=== PATIENT | male | born 1980 ===

== ENCOUNTER 2017-08-05 23:54 | Emergency (ER) | payer OTHER ==
[2017-08-06 00:01] VITALS: BP 133/87; PULSE 77; RESP 18; TEMP 97.5; O2SAT 100
--- NOTE | 2017-08-06 00:41 | C.PDOC ---
History Of Present Illness pt was "head butted " by his dog sustaining a small laceration to upper left lip. Not thru and thru. minimal bleeding. Time Seen by Provider: 08/06/17 00:41 Chief Complaint (Nursing): Abnormal Skin Integrity History Per: Patient History/Exam Limitations: no limitations Onset/Duration Of Symptoms: Mins Current Symptoms Are (Timing): Still Present Location Of Injury: Left: Head Quality Of Symptoms: Swollen Severity: Mild Pain Scale Rating Of: 3 Recent travel outside of the [place]: No Additional History Per: Patient Past Medical History Reviewed: Historical Data, Nursing Documentation, Vital Signs Vital Signs: Last Vital Signs Temp 97.5 F L 08/05/17 23:59 Pulse 77 08/05/17 23:59 Resp 18 08/05/17 23:59 BP 133/87 08/05/17 23:59 Pulse Ox 100 08/06/17 00:41 Surgical History: Appendectomy Family History: States: No Known Family Hx - Social History Hx Alcohol Use: No Hx Substance Use: No - Immunization History Hx Tetanus Toxoid Vaccination: No Hx Influenza Vaccination: No Hx Pneumococcal Vaccination: No Review Of Systems ENT: Positive for: Mouth Swelling Physical Exam - Physical Exam Appears: Non-toxic, No Acute Distress Skin: Other (laceration upper lip) Head: Normacephalic Oral Mucosa: Moist Lips: Laceration (o.5 cm upper left lip) ED Course And Treatment O2 Sat by Pulse Oximetry: 100 Pulse Ox Interpretation: Normal Laceration - Laceration Repair lip Wound Length (In cm): 0.5 cm Description Of Wound: Irregular Anesthesia: Lidocaine 1%, With Epi Wound Examination: Irrigated With Saline Wound Closure: Suture (6.0 prolene) Suture Technique And Material Used: Interrupted Wound Complexity: Simple Disposition Counseled Patient/Family Regarding: Studies Performed, Diagnosis, Need For Followup - Disposition Disposition: HOME/ ROUTINE Disposition Time: 00:41 Condition: FAIR Additional Instructions: Please return in 5-7 days for suture removal Instructions: Laceration Repair With Stitches (DC) Forms: [employer] (Swedish) - Clinical Impression Clinical Impression: Laceration of lip
[2017-08-06] MEDS ORDERED: Tdap Vaccine 0.5 ml Vial (10-64 yrs) IM ONE ×2 (00:47→00:53)
== END 2017-08-06 01:11 | disposition home or self-care (01) ==
LOC: C.ER 23:54
DX: S01.511A Laceration without foreign body of lip, initial encounter (principal); W54.1XXA Struck by dog, initial encounter

== ENCOUNTER 2018-01-06 10:46 | Emergency (ER) | payer OTHER ==
[2018-01-06 10:54] VITALS: BMI 23.6
[2018-01-06 10:56] VITALS: BP 124/67; PULSE 93; TEMP 97.7; O2SAT 100
[2018-01-06] MEDS ORDERED: Sodium Chloride 0.9% 1,000 ML IV ONE (11:27)
--- NOTE | 2018-01-06 11:30 | C.PDOC ---
History Of Present Illness 37 year old male presents to ED for evaluation of worsening facial injection for the last 3 weeks. Patient states symptoms are always present but have now worsened, onset with swelling. Temperature Max is 102 1 day ago. +Malaise. Denies dental pain, trauma, no previous antibiotic use, wound discharge, and other associated symptoms. WORSENING FACIAL SKIN INFECTION X 3 WEEKS. PS NOW WORSE BUT ALWAYS PRESENT. NEW ONSET SWELLING, TM 102 YEST, +MALAISE. DENIES DENTAL PAIN, TRAUMA. NO PREV ABX USE. DENIES WOUND DC. EXAM MOD DIST HEENT +SWELLING R LOWER FACE; NO DENTAL TEND, ABSCESS; INTRAORAL WNL. ATRAUM. MANDIBLE AROM WO DIF NO PHOTOPHOBIA SKIN +IMPETIGO R LOWER FACE W LOCAL ERYTHEMA, NO FLUCTUANCE. NEURO NO FOCAL DEF REMAINDE RNEG Time Seen by Provider: 01/06/18 11:19 Chief Complaint (Nursing): Allergic Reaction History Per: Patient History/Exam Limitations: no limitations Onset/Duration Of Symptoms: Days Current Symptoms Are (Timing): Still Present Past Medical History Reviewed: Historical Data, Nursing Documentation, Vital Signs Vital Signs: Last Vital Signs Temp 97.7 F 01/06/18 10:54 Pulse 93 H 01/06/18 10:54 Resp 20 01/06/18 14:07 BP 124/67 01/06/18 10:54 Pulse Ox 100 01/06/18 13:31 Surgical History: Appendectomy Family History: States: Unknown Family Hx - Social History Hx Alcohol Use: No Hx Substance Use: No - Immunization History Hx Tetanus Toxoid Vaccination: No Hx Influenza Vaccination: No Hx Pneumococcal Vaccination: No Review Of Systems Except As Marked, All Systems Reviewed And Found Negative. Constitutional: Positive for: Fever (TM 102), Malaise, Other (facial injection) . Negative for: Chills Gastrointestinal: Negative for: Nausea, Vomiting Neurological: Negative for: Weakness, Numbness, Incoordination Physical Exam - Physical Exam Appears: Non-toxic, Other (moderate discomfort ) Skin: Warm, Dry, Other (+IMPETIGO to the right lower face with local erythema. No fluctuance.) Head: Atraumatic, Normacephalic, Other (+swelling to right lower face) Eye(s): bilateral: Normal Inspection, PERRL, EOMI, Other (NO PHOTOPHOBIA) Teeth: Other (no dental tenderness, abscess, intraoral within normal limits. Mandible full ROM with out deficits. ) Neurological/Psych: Oriented x3, Normal Speech, Normal Motor, Normal Sensation, Other (no focal deficit) Gait: Steady ED Course And Treatment - Laboratory Results Result Diagrams: 01/06/18 11:48 01/06/18 11:48 O2 Sat by Pulse Oximetry: 100 (RA) Pulse Ox Interpretation: Normal Progress - Re-Evaluation Re-evaluation Note: 01/06/18 13:11 D/W DR DAVIS: CT FACE CELLULITIS, NO ABSCESS 01/06/18 13:25 SP IVF, PS FEELS BETTER. AGREES W DC PLAN - Data Reviewed Data Reviewed: Lab, Diagnostic imaging Medical Decision Making Medical Decision Making: Plan: --Blood sent --Urine culture sent --Blood culture sent. --Reglan --Sodium Chloride --Toradol --Tylenol --Vancomycin. Progress/Update: Patient stable for discharge home. Prescribed Bactrim, Bactroban Cream, Cephalexin, Motrin. Disposition Counseled Patient/Family Regarding: Studies Performed, Need For Followup, Rx Given - Disposition Referrals: YOUR,PMD [Other] Disposition: HOME/ ROUTINE Disposition Time: 14:00 Condition: IMPROVED Prescriptions: Cephalexin [cephalexin] 500 mg PO BID #14 cap Ibuprofen [Motrin] 600 mg PO Q6 #30 tab Mupirocin 2% Cream [Bactroban Cream] 30 applic TOP BID #1 tube Sulfamethoxazole/Trimethoprim [Bactrim DS 800 mg-160 mg] 1 tab PO BID #14 tab Instructions: Impetigo (DC), Cellulitis (Skin Infection), Adult (DC) Forms: [employer] (Swedish) - Clinical Impression Clinical Impression: Impetigo, Cellulitis - Scribe Statement The provider has reviewed the documentation as recorded by the Scribe (Azucena Gentile) Provider Attestation: All medical record entries made by the Scribe were at my direction and personally dictated by me. I have reviewed the chart and agree that the record accurately reflects my personal performance of the history, physical exam, medical decision making, and the department course for this patient. I have also personally directed, reviewed, and agree with the discharge instructions and disposition.
[2018-01-06 11:51] LABS: BASO # 0.1 K/uL (0.0-0.2); BASO % 0.7 % (0.0-2.0); EOS # 0.8 K/uL (0.0-0.7); EOS % 9.1 % (0.0-4.0); HEMOGLOBIN 15.7 g/dL (12.0-18.0); LYMPH # 1.5 K/uL (1.0-4.3); LYMPH % 17.1 % (20.0-40.0); MEAN CELL VOLUME 91.3 fL (80.0-94.0); MEAN CORPUSCULAR HEMOGLOBIN 31.1 pg (27.0-31.0); MEAN CORPUSCULAR HGB CONC 34.1 g/dL (33.0-37.0); MEAN PLATELET VOLUME 7.6 fL (7.2-11.7); MONO # 0.9 K/uL (0.0-0.8); MONO % 10.2 % (0.0-10.0); NEUT # 5.6 K/uL (1.8-7.0); NEUT % 62.9 % (50.0-75.0); NRBC % 0.1 % (0.0-2.0); RBC 5.06 Mil/uL (4.40-5.90); WHITE BLOOD COUNT 8.9 K/uL (4.8-10.8)
[2018-01-06] MEDS ORDERED: Sodium Chloride 0.9% 250 ML IV ONE (12:00)
[2018-01-06] MEDS ORDERED: Sodium Chloride 0.9% 2,000 ML ONE (12:00)
[2018-01-06] MEDS ORDERED: Vancomycin 1 GM 1 GM/250 ML BAG IVPB ONE (12:03)
[2018-01-06 12:06] LABS: VENOUS BLOOD GAS BASE EXCESS 3.1 mmol/L (0.0-2.0); VENOUS BLOOD GAS PCO2 56 mmHg (40-60); VENOUS BLOOD GAS PO2 24 mm/Hg (30-55); VENOUS BLOOD PH 7.34 (7.32-7.43)
[2018-01-06 12:11] LABS: ALB/GLOB RATIO 1.4 (1.0-2.1); ALBUMIN 4.5 g/dL (3.5-5.0); ALT/SGPT 38 U/L (21-72); AST/SGOT 25 U/L (17-59); BLOOD UREA NITROGEN 12 mg/dL (9-20); CALCIUM 9.4 mg/dl (8.6-10.4); GFR NON-AFRICAN AMERICAN > 60
[2018-01-06] MEDS ORDERED: Iodixanol 320 MG/ML 100 ML BOTTLE IV ONE (12:38)
[2018-01-06 12:46] LABS: SQUAMOUS EPITHIAL < 1 /hpf (0-5); URINE BILIRUBIN NEGATIVE (NEGATIVE); URINE BLOOD NEGATIVE (NEGATIVE); URINE CLARITY Clear (Clear); URINE COLOR Yellow (YELLOW); URINE GLUCOSE (UA) NORMAL (Normal); URINE LEUKOCYTE ESTERASE NEG Leu/uL (Negative); URINE PROTEIN NEGATIVE (NEGATIVE); URINE UROBILINOGEN NORMAL mg/dL (0.2-1.0)
--- NOTE | 2018-01-06 13:14 | CT ---
Date of service: 01/06/2018 PROCEDURE: CT MAXILLOFACIAL BONES WITH CONTRAST HISTORY: SWELLING RO ABSCESS COMPARISON: None. TECHNIQUE: Contiguous axial CT images of the maxillofacial bones were obtained following administration of IV contrast. Coronal and sagittal reformats were generated. Intravenous contrast Dose: Visipaque 320, 100 cc Radiation dose: Total exam DLP = 885.75 mGy-cm. This CT exam was performed using one or more of the following dose reduction techniques: Automated exposure control, adjustment of the mA and/or kV according to patient size, and/or use of iterative reconstruction technique. FINDINGS: NASAL BONES: No acute fracture identified. ORBITS: Unremarkable. PARANASAL SINUSES/ MASTOIDS: Multifocal ethmoid sinusitis identified with minimal right maxillary sinus disease appreciated. MAXILLA: There is relatively prominent superficial and deep subcutaneous edema identified overlying the inferior maxilla at the right and involves left mandibular soft tissue even more so. Dermal thickening is appreciated but with no retained radiodense foreign body or emphysema soft tissue changes associated. No defined fluid collection is appreciated with edema extending posteriorly to nearly abut the superficial portion of the right parotid gland. Overall pattern reflects limited phlegmon anteriorly but is most compatible with cellulitis without definitive abscess appreciable. MANDIBLE/ TEMPOROMANDIBULAR JOINTS: Soft tissue overlying the mandible at the right side as discussed above with left mandibular soft tissue unremarkable. Temporomandibular joints appear intact bilaterally and are unremarkable. SKULL BASE: Unremarkable. TEMPORAL BONES: Middle ears and mastoid grossly unremarkable. OTHER FINDINGS: None. IMPRESSION: Findings most compatible with inferior right facial cellulitis overlying the maxilla and mandible with limited phlegmon suggested anteriorly but no definite abscess or other fluid collection appreciable at this time. No emphysematous changes or retained radiodense foreign body identified. Moderate multifocal ethmoid sinusitis bilaterally identified. Findings discussed with Dr. Aragon with written down and read back verification 01/05/2018 1:08 p.m..
[2018-01-06 14:08] VITALS: RESP 20
== END 2018-01-06 14:07 | disposition home or self-care (01) ==
LOC: C.ER 10:46
DX: L01.00 Impetigo, unspecified (principal); L03.211 Cellulitis of face
CPT/HCPCS: 70481; 80053; 81001; 82803; 82948; 83735; 84100; 85025; 87040; 87086; 96361; 96365; 96375; 99285; J1885; J2765; J7030; J7050; Q9967